=== PATIENT | male | born 1960 | race Caucasian/White ===

== ENCOUNTER 2018-11-04 11:05 | Emergency (ER) | payer BC ==
--- NOTE | 2018-11-04 12:32 | ED Physician Documentation ---
PD HPI LOWER EXT INJURY - Stated complaint Stated Complaint: RT KNEE PX - Chief complaint Chief Complaint: Ext Problem - History obtained from History obtained from: Patient - History of Present Illness PD HPI LOW EXT INJURY LOCATION: Right, Knee (Without specific injury he has had about 2 weeks of anteromedial right knee pain and tightness but also in the calf. He has a history of a single postsurgical DVT in the left leg. Not currently on anticoagulation. Denies chest pain or trouble breathing.) Review of Systems Constitutional: denies: Fever, Chills Cardiac: denies: Chest pain / pressure, Palpitations Respiratory: denies: Dyspnea, Cough PD PAST MEDICAL HISTORY - Present Medications Home Medications: Ambulatory Orders Medication Instructions Recorded Confirmed Hydrocodone/Acetaminophen 1 - 2 each PO Q6H PRN #7 tablet 11/04/18 [Hydrocodon-Acetaminophen 5-325] Ibuprofen [Motrin] 800 mg PO Q8H PRN #30 tablet 11/04/18 - Allergies Allergies/Adverse Reactions: Allergies Allergy/AdvReac Type Severity Reaction Status Date / Time No Known Drug Allergies Allergy Verified 11/04/18 11:27 PD ED PE NORMAL - Vitals Vital signs reviewed: Yes - General General: Alert and oriented X 3, No acute distress - Extremities Extremities: Other (The right knee has a small effusion, he is minimally tender over the medial joint line and has pain with MCL testing but no laxity and pain with grind testing on the inside. There is no calf tenderness or edema.) - Neuro Neuro: Alert and oriented X 3, Normal speech Results - Vitals Vitals: Vital Signs - 24 hr 11/04/18 11:15 Temperature 36.5 C Heart Rate 77 Respiratory 16 Rate Blood Pressure 167/98 H O2 Saturation 99 Oxygen O2 Source Room air - Rads (name of study) R knee XR 4v Radiology: EMP read contemporaneously (small effusion) RLE DVT sono Radiology: Prelim report reviewed (neg for DVT) PD MEDICAL DECISION MAKING - ED course ED course: 57-year-old gentleman with atraumatic right knee pain. His concern was for DVT, although clinically This is not the case. The radiologist called me and there is one area of the peroneal vein is not seen very well which could be chronic thrombus or congenital. I discussed with the patient and under the circumstances given the pretest probability is very low I recommended that he talk with his primary care physician and have a repeat ultrasound in 1 week.. He may have a meniscus issue. Has a small effusion in the joint. He was placed in a Cam knee splint and referred to orthopedics. Departure - Departure Disposition: 01 Home, Self Care Clinical Impression: Internal derangement of right knee Condition: Good Record reviewed to determine appropriate education?: Yes Instructions: ED Meniscal Injury Knee Poss Follow-Up: [facility] [Provider Group] - Within 1 week Prescriptions: Hydrocodone/Acetaminophen [Hydrocodon-Acetaminophen 5-325] 1 - 2 each PO Q6H PRN #7 tablet PRN Reason: pain Ibuprofen [Motrin] 800 mg PO Q8H PRN #30 tablet PRN Reason: PAIN &/OR FEVER Comments: Your blood pressure was elevated today on check into the emergency department. This does not mean that you have hypertension, it is a common phenomenon to come to the emergency department and have elevated blood pressure. I recommend that you see your primary care physician within the week to have it rechecked when you are feeling better. As discussed there is a small area on the right leg where the radiologist cannot see the veins very well. I suspect this is nothing significant but recommend you have a repeat ultrasound in 1 week, you can talk about this with your doctor. Forms: Activity restrictions
--- NOTE | 2018-11-04 13:27 | XRAY Report ---
Reason: knee pain Procedure Date: 11/04/2018 Accession Number: [id number] / [id number] Procedure: XR - Knee 4 View RT CPT Code: FULL RESULT: EXAM: RIGHT KNEE RADIOGRAPHY EXAM DATE: 11/04/2018 12:51 PM. CLINICAL HISTORY: Knee pain. COMPARISON: None. TECHNIQUE: 4 views. FINDINGS: Bones: Normal. No fractures or bone lesions. Joints: Small effusion. No subluxations. Soft Tissues: Soft tissue swelling. IMPRESSION: Small effusion RADIA
--- NOTE | 2018-11-04 13:56 | Ultrasound Report ---
Reason: RLE pain Procedure Date: 11/04/2018 Accession Number: [id number] / [id number] Procedure: US - Duplex Ext Veins Right CPT Code: FULL RESULT: EXAM: RIGHT LOWER EXTREMITY VENOUS ULTRASOUND EXAM DATE: 11/04/2018 01:07 PM. CLINICAL HISTORY: RLE pain. COMPARISON: Left lower extremity venous duplex from 05/16/2008. TECHNIQUE: Real-time sonographic vascular imaging was performed by the tare man through the lower extremity utilizing both color-flow and Doppler spectral analysis. Multiple personal financial representative static images were saved for review. FINDINGS: Common Femoral Vein (CFV): Normal. CFV-GSV Junction: Normal. Profunda Femoral Vein (PFV): Normal. Femoral Vein (FV) Prox: Normal. Femoral Vein (FV) Mid: Normal. Femoral Vein (FV) Dist: Normal. Popliteal Vein: Normal. Posterior Tibial Veins: Normal. Peroneal Veins: Only 1 of the paired peroneal veins visualized. Contralateral Side CFV: Normal. Other: None. IMPRESSION: 1. Only 1 of the peroneal veins is visualized. Per discussion with Dr. Buenrostro, the patient's symptoms are localized to the knee, and there is low clinical suspicion for deep vein thrombus. Therefore, this may represent sequela of chronic atresia (either congenital or from previous thrombus). Nonvisualization from acute, occlusive thrombus is considered less likely given the clinical presentation. 2. Otherwise, no evidence for acute deep vein thrombus in the right lower extremity. RADIA The above findings were discussed with Dr. David Buenrostro by Dr. Deep Guerra at 13:55 hrs on 11/04/18.
[2018-11-04 13:59] VITALS: BP 154/84
[2018-11-04] MEDS ORDERED: HYDROcod/ACETAM 5/325 MG TABLET PO STA (14:00)
== END 2018-11-04 14:09 | disposition home or self-care (01) ==
LOC: ED 11:05
DX: M23.91 Unspecified internal derangement of right knee (principal); Z86.718 Personal history of other venous thrombosis and embolism; R03.0 Elevated blood-pressure reading, without diagnosis of hypertension
CPT/HCPCS: 73564; 93971; 99283; A9270

== ENCOUNTER 2018-11-25 21:42 | Outpatient (CLI) | payer BC ==
--- NOTE | 2018-11-26 00:26 | Ultrasound Report ---
Reason: LEG PAIN, RIGHT Procedure Date: 11/25/2018 Accession Number: [id number] / [id number] Procedure: US - Duplex Ext Veins Right CPT Code: FULL RESULT: EXAM: RIGHT LOWER EXTREMITY VENOUS ULTRASOUND EXAM DATE: 11/25/2018 11:45 PM. CLINICAL HISTORY: LEG PAIN, RIGHT. COMPARISON: DUPLEX EXT VEINS RIGHT 11/04/2018 1:07 PM. TECHNIQUE: Real-time sonographic vascular imaging was performed by the arrow point attacher through the lower extremity utilizing both color-flow and Doppler spectral analysis. Multiple manufacturer's service representative static images were saved for review. FINDINGS: Common Femoral Vein (CFV): No evidence of thrombus. CFV-GSV Junction: No evidence of thrombus. Profunda Femoral Vein (PFV): No evidence of thrombus. Femoral Vein (FV) Prox: No evidence of thrombus. Femoral Vein (FV) Mid: No evidence of thrombus. Femoral Vein (FV) Dist: No evidence of thrombus. Popliteal Vein: No evidence of thrombus. Posterior Tibial Veins: No evidence of thrombus. Peroneal Veins: No evidence of thrombus. Contralateral CFV: No evidence of thrombus. Other: None. IMPRESSION: Similar to the prior study, there is no evidence for deep venous thrombosis. RADIA
== END 2018-11-25 21:43 | disposition home or self-care (01) ==
LOC: DI 21:42
PROVIDERS: ATTEND Family Medicine
DX: M79.604 Pain in right leg (principal)

== ENCOUNTER 2022-08-04 15:33 | Outpatient (CLI) | payer BC ==
--- NOTE | 2022-08-04 16:51 | XRAY Report ---
PROCEDURE: Knee 4 View LT INDICATIONS: LEFT KNEE PAIN TECHNIQUE: 4 views of the left knee(s) were acquired. COMPARISON: None. FINDINGS: Bones: No fractures or dislocations. Right worse than left bilateral medial femoral tibial compartme nt joint space narrowing and subchondral sclerosis is seen. No patella subluxation. No suspicious bon y lesions. Soft tissues: No joint effusion. No suspicious soft tissue calcifications. 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 No fra cture or dislocation. No significant joint effusion. Reviewed by: Don Chandler MD on 08/04/2022 4:49 PM PDT Approved by: Don Chandler MD on 08/04/2022 4:49 PM PDT Station ID: [id number]
== END 2022-08-04 15:34 | disposition home or self-care (01) ==
LOC: DI 15:33
PROVIDERS: ATTEND Physician Assistant
DX: M17.0 Bilateral primary osteoarthritis of knee (principal)

== ENCOUNTER 2022-09-18 09:39 | Outpatient (CLI) | payer BC ==
[2022-09-18 17:00] LABS: BASOPHILS % (AUTO) 0.6 %; EOSINOPHILS # (AUTO) 0.2 10^3/uL (0.0-0.7); EOSINOPHILS % (AUTO) 2.3 %; HCT - HEMATOCRIT 49.1 % (42.0-52.0); HGB - HEMOGLOBIN 16.2 g/dL (14.0-18.0); LYMPHOCYTES # (AUTO) 2.4 10^3/uL (1.5-3.5); LYMPHOCYTES % (AUTO) 34.2 %; MEAN CORPUSCULAR HEMOGLOBIN 29.5 pg (27.0-31.0); MEAN CORPUSCULAR VOLUME 89.3 fL (80.0-94.0); MEAN PLATELET VOLUME 9.5 fL (7.4-11.4); MONOCYTES # (AUTO) 0.5 10^3/uL (0.0-1.0); MONOCYTES % (AUTO) 7.8 %; NEUTROPHILS # (AUTO) 3.8 10^3/uL (1.5-6.6); NEUTROPHILS % (AUTO) 54.8 %; PLT - PLATELET COUNT 204 10^3/uL (130-450); RED CELL DISTRIBUTION WIDTH 12.9 % (12.0-15.0)
[2022-09-18 17:46] LABS: ALBUMIN/GLOBULIN RATIO 1.1 (1.0-2.2); ALKALINE PHOSPHATASE 71 IU/L (42-121); ALT ALANINE AMINOTRANSFERASE 37 IU/L (10-60); AST ASPARTATE AMINOTRANSFERASE 23 IU/L (10-42); BILIRUBIN,TOTAL 0.7 mg/dL (0.2-1.0); BUN - BLOOD UREA NITROGEN 19 mg/dL (6-20); CALCIUM 9.3 mg/dL (8.5-10.3); CARBON DIOXIDE - CO2 27 mmol/L (21-32); CHLORIDE 103 mmol/L (101-111); CHOL/HDL RATIO 6.2 (<5.0); CHOLESTEROL 211 mg/dL; CREATININE 1.1 mg/dL (0.6-1.2); GFR - MDRD 69 (>89); GLUCOSE 133 mg/dL (70-100); HDL CHOLESTEROL 34 mg/dL; LDL CHOLESTEROL,CALCULATED 155 mg/dL; LDL/HDL RATIO 4.6 (<3.6); POTASSIUM 4.3 mmol/L (3.5-5.0); SODIUM 137 mmol/L (135-145); TOTAL PROTEIN 7.5 g/dL (6.7-8.2); TRIGLYCERIDES 111 mg/dL; VLDL CHOLESTEROL 22 mg/dL
[2022-09-18 17:57] LABS: THYROID STIMULATING HORMONE 2.78 uIU/mL (0.34-5.60)
[2022-09-18 21:10] LABS: ESTIMATED AVERAGE GLUCOSE 148 mg/dL (70-100); HEMOGLOBIN A1c% 6.8 % (4.27-6.07)
== END 2022-09-18 09:40 | disposition home or self-care (01) ==
LOC: LAB.N 09:39
PROVIDERS: ATTEND Nurse Practitioner Family
DX: E78.5 Hyperlipidemia, unspecified (principal); R03.0 Elevated blood-pressure reading, without diagnosis of hypertension; E66.9 Obesity, unspecified
CPT/HCPCS: 36415; 80053; 80061; 83036; 83721; 84443; 85025

== ENCOUNTER 2023-01-23 08:15 | Emergency (ER) | payer BC ==
--- NOTE | 2023-01-23 08:35 | ED Physician Documentation ---
PD HPI CHEST PAIN - Stated complaint Stated Complaint: CHEST PX - Chief complaint Chief Complaint: Cardiac - History obtained from History obtained from: Patient - History of Present Illness Timing - onset: How many hours ago (10/26), Today Timing - onset during: Rest (onset was after having intercourse shortly before, but he was resting at the time of onset.) Timing - duration: Hours (1) Timing - details: Abrupt onset, Still present Quality: Pressure, Tightness. No: Sharp Location: Substernal, Upper back Radiation: Back. No: Jaw, Neck Improved by: No: Rest Worsened by: No: Inspiration, Movement Associated symptoms: Diaphoresis, Nausea, Feeling faint / dizzy. No: Shortness of air, Palpitations, Cough Similar symptoms before: Has not had sx before Recently seen: Not recently seen Review of Systems Constitutional: denies: Fever, Chills Nose: denies: Rhinorrhea / runny nose, Congestion Throat: denies: Sore throat Respiratory: denies: Cough PD PAST MEDICAL HISTORY - Past Medical History Cardiovascular: Hypertension, Deep vein thrombosis (7 years ago left leg, provoked. ) Respiratory: None - Present Medications Home Medications: Ambulatory Orders Medication Instructions Recorded Confirmed Lisinopril [Zestril] 20 mg PO DAILY 01/23/23 01/23/23 Metformin HCl [Metformin ER 500 mg PO BID 01/23/23 01/23/23 Osmotic] - Allergies Allergies/Adverse Reactions: Allergies Allergy/AdvReac Type Severity Reaction Status Date / Time No Known Drug Allergies Allergy Verified 11/04/18 11:27 - Living Situation Living Situation: reports: With spouse/s.o. Living Arrangement: reports: At home - Family History Family history: reports: CAD PD ED PE NORMAL - Vitals Vital signs reviewed: Yes - General General: Alert and oriented X 3, Well developed/nourished, Other (Patient is in obvious discomfort with the chest tightness and pain. He is markedly diaphoretic.) - Neck Neck: Supple, no meningeal sign, No adenopathy - Cardiac Cardiac: RRR, No murmur - Respiratory Respiratory: Clear bilaterally, Other (no chestwall tenderness) - Abdomen Abdomen: Soft, Non tender - Derm Derm: Normal color, Warm and dry - Extremities Extremities: No calf tenderness / cord, Other (1+ mild edema left leg, which is chronic per patient. no calf tenderness. ) - Neuro Neuro: Alert and oriented X 3, No motor deficit, Normal speech Results - Vitals Vitals: Vital Signs - 24 hr 01/23/23 01/23/23 08:19 08:34 Temperature 36.8 C Heart Rate 57 L 65 Respiratory 16 16 Rate Blood Pressure 111/71 107/71 O2 Saturation 100 100 Oxygen O2 Source Room air - EKG (time done) on presentation EKG releavant findings:: EKG personally interpreted by author of this note. Relevant findings are: Rhythm: NSR [place]: Normal Intervals: Normal [place] QRS: Normal Ischemia: ST elevation c/w ischemia (V1-V3 mild ST elevations.), Hyperacute T waves (V2) Compare to prior EKG: Old EKG unavailable - Labs Labs: Laboratory Tests 01/23/23 08:27 POC Whole Bld Glucose 171 H - Rads (name of study) chest xray Relevant Findings:: Prelim report reviewed, EMP independent interpretation of test (no acute process), See rad report PD Medical Decision Making - ED course Complexity details: considered differential, d/w patient, d/w sustainability consultant (Spoke with Dr. Mensah at [facility] who accepted transfer of the patient.) ED course: The patient arrived and was brought into the room promptly. EKG was performed. This was showing some subtle but present ST elevations in the V1 V2 and a flipped T wave in aVR. He was clinically diaphoretic and in significant discomfort. Chest x-ray done promptly was normal. At this point we would invoke the STEMI protocol. I did talk with Dr. Mensah at the [facility] who accepted transfer of the patient there. [employer] was notified. The patient was given the typical STEMI medications including aspirin, Plavix 300 mg, atorvastatin 40 mg, and started on a heparin drip weight-based protocol. He was also given morphine and nitro for the discomfort. He did develop some slight nausea and was given Zofran as well. EMTALA transfer forms were signed at [phone]. [employer] crew was notified at that time as well. The patient is being transferred acutely to [facility] for presumed Professor [employer] intervention. - Critical Care Time(min): 35 Time Includes: Direct patient care, Reassess patient, Document care, Coordinate care, Medical consult Data interpretation: Labs, Pulse ox, CXR Procedures excluded from critical care time: EKG Departure - Departure Disposition: 02 Transfer Acute Care Hosp Clinical Impression: Chest tightness STEMI (ST elevation myocardial infarction) Qualifiers: Involved coronary artery: LAD coronary artery Qualified Code(s): I21.02 - ST elevation (STEMI) myocardial infarction involving left anterior descending coronary artery Condition: Serious Record reviewed to determine appropriate education?: Yes
[2023-01-23 08:36] LABS: BASOPHILS # (AUTO) 0.1 10^3/uL (0.0-0.1); BASOPHILS % (AUTO) 0.7 %; EOSINOPHILS # (AUTO) 0.4 10^3/uL (0.0-0.7); EOSINOPHILS % (AUTO) 3.2 %; HCT - HEMATOCRIT 49.3 % (42.0-52.0); HGB - HEMOGLOBIN 16.5 g/dL (14.0-18.0); LYMPHOCYTES # (AUTO) 3.9 10^3/uL (1.5-3.5); MEAN CORPUSCULAR HGB CONC 33.5 g/dL (32.0-36.0); MEAN CORPUSCULAR VOLUME 89.6 fL (80.0-94.0); MEAN PLATELET VOLUME 8.8 fL (7.4-11.4); MONOCYTES % (AUTO) 8.6 %; NEUTROPHILS % (AUTO) 53.1 %; PLT - PLATELET COUNT 278 10^3/uL (130-450); RED CELL DISTRIBUTION WIDTH 12.7 % (12.0-15.0); WHITE BLOOD COUNT 11.4 x10^3/uL (4.8-10.8)
[2023-01-23] MEDS ORDERED: ASPIRIN CHEW 81 MG TABLET PO STA (08:36)
[2023-01-23] MEDS ORDERED: CLOPIDOGREL 300 MG TABLET PO STA (08:36)
[2023-01-23] MEDS ORDERED: NITROGLYCERIN SL 0.4 MG TABLET SL STA (08:37)
[2023-01-23] MEDS ORDERED: ATORVASTATIN 40 MG TABLET PO STA (08:37)
[2023-01-23] MEDS ORDERED: SODIUM CHLORIDE 0.9% 500 ML IV STA (08:38)
[2023-01-23] MEDS ORDERED: MORPHINE 2 MG/ML CARPUJECT IVP STA (08:40)
[2023-01-23 08:50] LABS: ALBUMIN 4.1 g/dL (3.2-5.5); ALBUMIN/GLOBULIN RATIO 1.1 (1.0-2.2); BILIRUBIN,TOTAL 0.8 mg/dL (0.2-1.0); CALCIUM 9.5 mg/dL (8.5-10.3); CREATININE 1.1 mg/dL (0.6-1.2); POTASSIUM 3.8 mmol/L (3.5-5.0); TOTAL PROTEIN 7.7 g/dL (6.7-8.2)
--- NOTE | 2023-01-23 08:52 | XRAY Report ---
PROCEDURE: Chest 1 View X-Ray INDICATIONS: Chest pain TECHNIQUE: One view of the chest was acquired. COMPARISON: None. FINDINGS: Surgical changes and devices: None. Lungs and pleura: No pleural effusions or pneumothorax. Lungs are clear. Mediastinum: Mediastinal contours appear normal. Heart size is normal. Bones and chest wall: No suspicious bony lesions. Overlying soft tissues appear unremarkable. IMPRESSION: Chest without acute cardiopulmonary abnormalities or focal airspace disease. Reviewed by: Ricki Agee MD on 01/23/2023 8:51 AM PDT Approved by: Ricki Agee MD on 01/23/2023 8:51 AM PDT Station ID: [id number]
[2023-01-23 09:00] VITALS: BP 96/60
[2023-01-23] MEDS ORDERED: HEPARIN 25000UNITS/500ML (D5W) 25,000 UNIT/500 ML BAG IV SCH (09:00)
[2023-01-23 10:07] LABS: B. PARAPERTUSSIS- RESP PCR PAN NOT DETECTED; B. PERTUSSIS- RESP PCR PANEL NOT DETECTED; C. PNEUMONIAE- RESP PCR PANEL NOT DETECTED; CORONAVIRUS 229E-RESP PCR NOT DETECTED; CORONAVIRUS HKU1-RESP PCR NOT DETECTED; CORONAVIRUS NL63-RESP PCR NOT DETECTED; CORONAVIRUS OC43-RESP PCR NOT DETECTED; HUMAN METAPNEUMOVIRUS NOT DETECTED; INFLUENZA A- RESP PCR PANEL NOT DETECTED; INFLUENZA B - RESP PCR PANEL NOT DETECTED; M. PNEUMONIAE- RESP PCR PANEL NOT DETECTED; PARAINFLUENZA VIRUS 1 NOT DETECTED; PARAINFLUENZA VIRUS 2 NOT DETECTED; PARAINFLUENZA VIRUS 3 NOT DETECTED; PARAINFLUENZA VIRUS 4 NOT DETECTED; RHINOVIRUS/ENTEROVIRUS NOT DETECTED; RSV- RESP PCR PANEL NOT DETECTED; SARS-CoV-2 -RESP PCR PANEL NOT DETECTED
== END 2023-01-23 09:09 | disposition short-term general hospital (02) ==
LOC: ED 08:15
DX: I21.02 ST elevation (STEMI) myocardial infarction involving left anterior descending coronary artery (principal); Z20.822 Contact with and (suspected) exposure to COVID-19
CPT/HCPCS: 36415; 71045; 80053; 83690; 84484; 85025; 87633; 93005; 96374; 96375; 99285; 99291; A9270

== ENCOUNTER 2023-04-23 16:21 | Outpatient (CLI) | payer BC ==
[2023-04-23 18:02] LABS: ALBUMIN 4.2 g/dL (3.2-5.5); ALBUMIN/GLOBULIN RATIO 1.2 (1.0-2.2); ALKALINE PHOSPHATASE 94 IU/L (42-121); ALT ALANINE AMINOTRANSFERASE 37 IU/L (10-60); AST ASPARTATE AMINOTRANSFERASE 26 IU/L (10-42); BUN - BLOOD UREA NITROGEN 24 mg/dL (6-20); CALCIUM 9.1 mg/dL (8.5-10.3); CARBON DIOXIDE - CO2 25 mmol/L (21-32); CHLORIDE 103 mmol/L (101-111); CHOL/HDL RATIO 4.8 (<5.0); CHOLESTEROL 152 mg/dL; GFR - MDRD 76 (>89); GLUCOSE 88 mg/dL (70-100); HDL CHOLESTEROL 32 mg/dL; LDL CHOLESTEROL,CALCULATED 92 mg/dL; LDL/HDL RATIO 2.9 (<3.6); POTASSIUM 3.6 mmol/L (3.5-5.0); SODIUM 137 mmol/L (135-145); TOTAL PROTEIN 7.6 g/dL (6.7-8.2); TRIGLYCERIDES 141 mg/dL; VLDL CHOLESTEROL 28 mg/dL
[2023-04-23 21:12] LABS: ESTIMATED AVERAGE GLUCOSE 137 mg/dL (70-100); HEMOGLOBIN A1c% 6.4 % (4.27-6.07)
== END 2023-04-23 16:22 | disposition home or self-care (01) ==
LOC: LAB.N 16:21
PROVIDERS: ATTEND Nurse Practitioner Family
DX: I10 Essential (primary) hypertension (principal); E78.5 Hyperlipidemia, unspecified; E11.69 Type 2 diabetes mellitus with other specified complication
CPT/HCPCS: 36415; 80053; 80061; 83036; 83721

== ENCOUNTER 2023-08-27 06:24 | Day surgery (SDC) | payer BC ==
[2023-08-27] MEDS ORDERED: LACTATED RINGERS 1,000 ML IV ONE ×2 (06:33→09:10)
[2023-08-27] MEDS ORDERED: PROPOFOL 500 MG/50 ML 500 MG/50 ML VIAL ONE (06:49)
[2023-08-27] MEDS ORDERED: GLYCOPYRROLATE 1 MG/5 ML VIAL ONE (06:53)
--- NOTE | 2023-08-27 07:08 | ANESTHESIA ---
Pre-Anesthesia VS, & Labs - Diagnosis screening - Procedure colonoscopy Vital Signs: Temp Pulse Resp BP Pulse Ox O2 Flow Rate 36.2 C L 58 L 16 135/87 H 99 0 08/27/23 06:46 08/27/23 06:46 08/27/23 06:46 08/27/23 06:46 08/27/23 06:46 08/27/23 06:46 Height: 6 ft 2 in Weight (kg): 111 kg Body Mass Index: 31.4 BMI Classification: Obese - NPO >8 hours - Lab Results Current Lab Results: Laboratory Tests 08/27/23 06:58: POC Whole Bld Glucose 110 H Lab results reviewed: Yes Home Medications and Allergies Home Medications: Ambulatory Orders Aspirin [Aspirin EC] 81 mg ORAL DAILY 08/26/23 Clopidogrel Bisulfate [Plavix] 75 mg ORAL DAILY 08/26/23 Gabapentin [Neurontin] 100 mg ORAL DAILY 08/26/23 Atorvastatin Calcium 40 mg PO DAILY 08/27/23 Metoprolol Succinate [Toprol Xl] 25 mg PO DAILY 08/27/23 Lisinopril [Zestril] 20 mg PO DAILY 01/23/23 Metformin HCl [Metformin ER Osmotic] 500 mg PO BID 01/23/23 Aspirin [Aspirin EC] 81 mg ORAL DAILY 08/26/23 Clopidogrel Bisulfate [Plavix] 75 mg ORAL DAILY 08/26/23 Gabapentin [Neurontin] 100 mg ORAL DAILY 08/26/23 Atorvastatin Calcium 40 mg PO DAILY 08/27/23 Metoprolol Succinate [Toprol Xl] 25 mg PO DAILY 08/27/23 Allergies/Adverse Reactions: Allergies Allergy/AdvReac Type Severity Reaction Status Date / Time No Known Drug Allergies Allergy Verified 08/26/23 14:01 Anes History & Medical History - Anesthetic History Anesthesia Complications: reports: No previous complications Family history of Anesthesia Complications: Denies Family history of Malignant Hyperthermia: Denies - Medical History Cardiovascular: reports: Hypertension, High cholesterol, Coronary artery disease, Deep vein thrombosis, [place] (02/14, s/p stents, no issues since, plavix 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, 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) Pulmonary: reports: None Gastrointestinal: reports: None Urinary: reports: None Musculoskeletal: reports: None Endocrine/Autoimmune: reports: Type 2 diabetes Skin: reports: None Smoking Status: Never smoker - Surgical History Eyes Ears Nose Throat (EENT): reports: Tonsil/Adenoidectomy, Other Cardiothoracic: reports: Coronary stent, Angioplasty Orthopedic: reports: Other Exam General: Alert, Oriented x3, Cooperative Dental: Other (chipped #[phone]) Mouth Openin Fingerbreadth Neck Mobility: Normal Mallampati classification: II Thyromental Distance: 4-6 cm Respiratory: Lungs clear Cardiovascular: Regular rate Plan Anesthesia Type: Total IV Consent for Procedure(s) Verified and Reviewed: Yes Code Status: Attempt Resuscitation ASA classification: 3-Severe systemic disease Is this case an emergency?: No
[2023-08-27] MEDS ORDERED: MIDAZOLAM 2 MG/2 ML VIAL ONE (07:31)
[2023-08-27] MEDS ORDERED: PROPOFOL 200 MG/20 ML VIAL IVP ONE (08:00)
[2023-08-27] MEDS ORDERED: SIMETHICONE 40 MG/0.6 ML 15 ML BOTTLE PO ONE (08:02)
[2023-08-27 08:55] VITALS: BP 113/70; O2SAT 95
--- NOTE | 2023-08-27 14:16 | ANESTHESIA POST OP EVALUATION ---
Anesthesia Post Eval - Post Anesthesia Eval Vitals: Last Vital Signs Temp 36.0 C L 08/27/23 08:50 Pulse 72 08/27/23 08:50 Resp 16 08/27/23 08:50 BP 113/70 08/27/23 08:50 Pulse Ox 95 08/27/23 08:50 O2 Flow Rate 0 08/27/23 06:46 CV Function Including HR & BP: Stable Pain Control: Satisfactory Nausea & Vomiting: Negative Mental Status: Baseline Respiratory Status: Airway Patent Hydration Status: Satisfactory Anesthesia Complications: None
== END 2023-08-27 06:25 | disposition home or self-care (01) ==
LOC: SDS 06:24
PROVIDERS: ATTEND Surgery
PROC: 0DBN8ZZ Excision of Sigmoid Colon, Via Natural or Artificial Opening Endoscopic (ICD-10-PCS; 2023-08-27)
PROC: 0DBM8ZZ Excision of Descending Colon, Via Natural or Artificial Opening Endoscopic (ICD-10-PCS; 2023-08-27)
PROC: 0DBH8ZZ Excision of Cecum, Via Natural or Artificial Opening Endoscopic (ICD-10-PCS; 2023-08-27)
PROC: 0DBK8ZZ Excision of Ascending Colon, Via Natural or Artificial Opening Endoscopic (ICD-10-PCS; principal; 2023-08-27 07:30)
DX: Z12.11 Encounter for screening for malignant neoplasm of colon (principal); D12.2 Benign neoplasm of ascending colon; D12.4 Benign neoplasm of descending colon; D12.0 Benign neoplasm of cecum; D12.5 Benign neoplasm of sigmoid colon; K57.30 Diverticulosis of large intestine without perforation or abscess without bleeding; E66.9 Obesity, unspecified; Z68.31 Body mass index [BMI] 31.0-31.9, adult; E11.9 Type 2 diabetes mellitus without complications; Z79.84 Long term (current) use of oral hypoglycemic drugs; Z79.02 Long term (current) use of antithrombotics/antiplatelets; I25.2 Old myocardial infarction; Z95.5 Presence of coronary angioplasty implant and graft; I25.10 Atherosclerotic heart disease of native coronary artery without angina pectoris
CPT/HCPCS: 45380; 45385; A9270; J7120

== ENCOUNTER 2024-02-09 15:39 | Outpatient (CLI) | payer BC ==
[2024-02-09 17:45] LABS: BASOPHILS # (AUTO) 0.1 10^3/uL (0.0-0.1); BASOPHILS % (AUTO) 0.7 %; EOSINOPHILS # (AUTO) 0.2 10^3/uL (0.0-0.7); EOSINOPHILS % (AUTO) 3.2 %; HCT - HEMATOCRIT 46.2 % (42.0-52.0); HGB - HEMOGLOBIN 15.7 g/dL (14.0-18.0); LYMPHOCYTES # (AUTO) 2.7 10^3/uL (1.5-3.5); LYMPHOCYTES % (AUTO) 35.6 %; MEAN CORPUSCULAR VOLUME 88.2 fL (80.0-94.0); MEAN PLATELET VOLUME 9.4 fL (7.4-11.4); MONOCYTES # (AUTO) 0.6 10^3/uL (0.0-1.0); NEUTROPHILS # (AUTO) 3.9 10^3/uL (1.5-6.6); NEUTROPHILS % (AUTO) 52.4 %; PLT - PLATELET COUNT 190 10^3/uL (130-450); RED BLOOD COUNT 5.24 10^6/uL (4.70-6.10); RED CELL DISTRIBUTION WIDTH 13.1 % (12.0-15.0); WHITE BLOOD COUNT 7.5 x10^3/uL (4.8-10.8)
[2024-02-09 18:09] LABS: ALBUMIN 4.4 g/dL (3.2-5.5); ALBUMIN/GLOBULIN RATIO 1.6 (1.0-2.2); ALKALINE PHOSPHATASE 79 IU/L (42-121); ALT ALANINE AMINOTRANSFERASE 35 IU/L (10-60); AST ASPARTATE AMINOTRANSFERASE 24 IU/L (10-42); BILIRUBIN,TOTAL 0.8 mg/dL (0.2-1.0); BUN - BLOOD UREA NITROGEN 15 mg/dL (6-20); CALCIUM 9.8 mg/dL (8.5-10.3); CARBON DIOXIDE - CO2 26 mmol/L (21-32); CHLORIDE 104 mmol/L (101-111); CHOL/HDL RATIO 4.1 (<5.0); CHOLESTEROL 147 mg/dL; CREATININE 0.8 mg/dL (0.6-1.3); GFR - MDRD 98 (>89); GLUCOSE 98 mg/dL (74-104); HDL CHOLESTEROL 36 mg/dL; LDL CHOLESTEROL,CALCULATED 77 mg/dL; LDL/HDL RATIO 2.1 (<3.6); POTASSIUM 3.9 mmol/L (3.5-4.5); SODIUM 137 mmol/L (135-145); TOTAL PROTEIN 7.1 g/dL (6.4-8.9); TRIGLYCERIDES 170 mg/dL (48-352); URIC ACID 5.6 mg/dL (4.4-7.6); VLDL CHOLESTEROL 34 mg/dL
[2024-02-09 20:15] LABS: ESTIMATED AVERAGE GLUCOSE 146 mg/dL (70-100); HEMOGLOBIN A1c% 6.7 % (4.27-6.07)
== END 2024-02-09 15:40 | disposition home or self-care (01) ==
LOC: LAB.N 15:39
PROVIDERS: ATTEND Nurse Practitioner Family
DX: I10 Essential (primary) hypertension (principal); E78.5 Hyperlipidemia, unspecified; E11.69 Type 2 diabetes mellitus with other specified complication; Z86.39 Personal history of other endocrine, nutritional and metabolic disease
CPT/HCPCS: 36415; 80053; 80061; 83036; 83721; 84550; 85025